=== PATIENT | male | born 1980 | race Caucasian/White ===

== ENCOUNTER 2017-12-16 04:31 | Emergency (ER) | payer OTHER ==
--- NOTE | 2017-12-16 04:39 | PDOC ---
History of Present Illness - General Stated Complaint: EYE PROBLEM Time Seen by Provider: 12/16/17 04:38 - History of Present Illness Initial Comments: 12/16/17 04:38 Mr. Brown is a 37 yo male w/ pmh of HTN who presents for evaluation of left eye pain. He reports it started being mildly bothersome at home last night before he went to bed but he was not overly concerned. The pain woke him up in the middle of the night however and he believes he had something from work in his eye. 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 in his eye. He irrigated his eye for over an hour before presentation without any alleviation of his symptoms. The patient denies chest pain, shortness of breath, headache and dizziness. Denies fever, chills, nausea, vomit, diarrhea and constipation. Denies dysuria, frequency, urgency and hematuria. Past History - Past Medical History Allergies/Adverse Reactions: Allergies Allergy/AdvReac Type Severity Reaction Status Date / Time No Known Allergies Allergy Verified 12/16/17 04:48 Home Medications: Ambulatory Orders NK [No Known Home Medication] 12/16/17 Review of Systems - Review of Systems Comments:: 12/16/17 04:39 GENERAL/CONSTITUTIONAL: No fever or chills. No weakness. HEAD, EYES, EARS, NOSE AND THROAT: +Left eye pain as described. No change in vision. No ear pain or discharge. No sore throat. CARDIOVASCULAR: No chest pain or shortness of breath RESPIRATORY: No cough, wheezing, or hemoptysis. GASTROINTESTINAL: No nausea, vomiting, diarrhea or constipation. GENITOURINARY: No dysuria, frequency, or change in urination. MUSCULOSKELETAL: No joint or muscle swelling or pain. No neck or back pain. SKIN: No rash NEUROLOGIC: No headache, vertigo, loss of consciousness, or change in strength/ sensation. ENDOCRINE: No increased thirst. No abnormal weight change HEMATOLOGIC/LYMPHATIC: No anemia, easy bleeding, or history of blood clots. ALLERGIC/IMMUNOLOGIC: No hives or skin allergy. *Physical Exam - Physical Exam Comments: 12/16/17 04:39 GENERAL: Awake, alert, and fully oriented, in no acute distress HEAD: No signs of trauma, normocephalic, atraumatic EYES: +Left eye conjunctiva injected. No foreign bodies appreciated. PERRLA, EOMI, sclera anicteric ENT: Auricles normal inspection, hearing grossly normal, nares patent, oropharynx clear without exudates. Moist mucosa NECK: Normal ROM, supple, no lymphadenopathy, JVD, or masses LUNGS: No distress, speaks full sentences, clear to auscultation bilaterally HEART: Regular rate and rhythm, normal S1 and S2, no murmurs, rubs or gallops, peripheral pulses normal and equal bilaterally. ABDOMEN: Soft, nontender, normoactive bowel sounds. No guarding, no rebound. No masses EXTREMITIES: Normal inspection, Normal range of motion, no edema. No clubbing or cyanosis. NEUROLOGICAL: Cranial nerves II through XII grossly intact. Normal speech, normal gait, no focal sensorimotor deficits SKIN: Warm, Dry, normal turgor, no rashes or lesions noted. Medical Decision Making - Medical Decision Making 12/16/17 05:05 Mr. Brown is a 37 yo male w/ pmh of HTN who presents for evaluation of left eye pain. Eye examined after application of tetracaine and flourescein under hightower lamp. No foreign body appreciated. Suspect patient's copious irrigation removed any foreign body that may have been present. Erythromycin ointment applied to left eye for prophylaxis. Discharging patient to home with instructions to follow-up with specialist field engineer as needed. Patient verbalized understanding and agreement and will comply. *DC/Admit/Observation/Transfer Diagnosis at time of Disposition: Eye abrasion Qualifiers: Encounter type: initial encounter Laterality: left Qualified Code(s): S05.8X2A - Other injuries of left eye and orbit, initial encounter - Discharge Dispostion Disposition: HOME - Referrals Referrals: Mando Negron [Primary Care Provider] - - Patient Instructions Printed Discharge Instructions: DI for Foreign Body in the Eye Additional Instructions: Please return to ER immediately if any return/increase in pain, fever, chills, changes in vision, or other concerning symptoms. Follow-up with primary care physician or specialist field engineer as needed for any further non-emergent care needs. - Post Discharge Activity Forms/Work/School Notes: Back to Work
--- NOTE | 2017-12-16 04:42 | PDOC ---
Attending Attestation - HPI HPI: 12/16/17 04:50 The patient is a 37 year old male with no significant PMH who presents to the emergency department with left eye irritation beginning approximately last night. 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 He reports waking up in the middle of the night lacrimating in his left eye, prompting his visit. Allergies: NKA PCP: Dr. Gilmore Villi <Celso Justice - Last Filed: 12/16/17 04:50> - Resident Resident Name: Manuel Suarez - ED Attending Attestation I have performed the following: I have examined & evaluated the patient, The case was reviewed & discussed with the resident, I agree w/resident's findings & plan, Exceptions are as noted - Physicial Exam PE: 12/16/17 06:53 *Physical Exam General Appearance: Yes: Appropriately Dressed. No: Apparent Distress, Intoxicated HEENT: positive: EOMI, ANA M,no focal body to either eye, + erthyema to left eye. Normal ENT Inspection, Normal Voice, TMs Normal, Pharynx Normal. negative : Pale Conjunctivae, Photophobia, Scleral Icterus (R), Scleral Icterus (L) Neck: positive: Trachea midline, Normal Thyroid, Supple. negative: Tender, Rigid, Carotid bruit, Stridor, Lymphadenopathy (R), Lymphadenopathy (L), Thyromegaly Respiratory/Chest: positive: Lungs Clear, Normal Breath Sounds. negative: Chest Tender, Respiratory Distress, Accessory Muscle Use, Labored Respiration, RES, Crackles, Rales, Rhonchi, Stridor, Wheezing, Dullness Cardiovascular: positive: Regular Rhythm, Regular Rate, S1, S2. negative: Edema , JVD, Murmur, Bradycardia, Tachycardia Vascular Pulses: Dorsalis-Pedis (R): 2+, Doralis-Pedis (L): 2+ Gastrointestinal/Abdominal: positive: Normal Bowel Sounds, Flat, Soft. negative : Tender, Organomegaly, Pulsatile Mass, Increased Bowel Sounds, Decreased BS, Distended, Guarding, Rebound, Hernia, Hepatomegaly, Spleenomegaly Lymphatic: negative: Adenopathy, Tenderness Musculoskeletal: positive: Normal Inspection. negative: CVA Tenderness, Decreased Range of Motion Extremity: positive: Normal Capillary Refill, Normal Inspection, Normal Range of Motion, Pelvis Stable. negative: Tender, Pedal Edema, Swelling, Erythema Integumentary: positive: Normal Color, Dry, Warm. negative: Cyanotic, Erythema , Jaundice, Rash Neurologic: positive: leather stamper II-XII NML intact, Fully Oriented, Alert, Normal Mood/ Affect, Motor Strength 5/5. negative: EOM Palsy, Facial Droop, Sensory Deficit - Medical Decision Making 12/16/17 06:54 Pt treated and released <Miguel Small - Last Filed: 12/16/17 06:55>
[2017-12-16] MEDS ORDERED: FLUORESCEIN NA 1 EA STRIP OS ONE (04:47)
[2017-12-16] MEDS ORDERED: TETRACAINE 0.5% HCL 0.6ML DROPPER.BOTTLE OS ONE (04:49)
[2017-12-16] MEDS ORDERED: TETRACAINE 0.5% OPHTH SOLN 2 ML BOTTLE ONE (04:50)
[2017-12-16] MEDS ORDERED: FLUORESCEIN NA 1 EA STRIP ONE (04:51)
[2017-12-16 04:52] VITALS: BP 142/78; PULSE 82; TEMP 98.6; BMI 25.8
[2017-12-16] MEDS ORDERED: ERYTHROMYCIN 0.5% OPHTHALMIC OINTMENT 3.5 GM TUBE OS ONE (04:59)
[2017-12-16] MEDS ORDERED: ERYTHROMYCIN 0.5% OPHTHALMIC OINTMENT 3.5 GM TUBE ONE (05:01)
== END 2017-12-16 05:17 | disposition home or self-care (01) ==
LOC: JER 04:31
PROC: 3E1CX8Z Irrigation of Eye using Irrigating Substance (ICD-10-PCS; principal; 2017-12-16)
DX: S05.8X2A Other injuries of left eye and orbit, initial encounter (principal); T15.12XA Foreign body in conjunctival sac, left eye, initial encounter; X58.XXXA Exposure to other specified factors, initial encounter; Y93.89 Activity, other specified; Y92.89 Other specified places as the place of occurrence of the external cause; Y99.8 Other external cause status
CPT/HCPCS: 99281-25